=== PATIENT | male | born 1955 | race African-American/Black ===

== ENCOUNTER 2022-07-01 05:55 | Inpatient (IN) | payer MEDICARE, OTHER ==
[2022-07-01] MEDS ORDERED: Metoprolol Tartrate 5 MG/5 ML VIAL ONE ×2 (06:43→12:47)
[2022-07-01] MEDS ORDERED: Albuterol 2.5 MG/0.5 ML NEB ONE (06:43)
[2022-07-01] MEDS ORDERED: Ipratropium Bromide 2.5 ml Neb ONE (06:43)
[2022-07-01] MEDS ORDERED: Magnesium 2 GM/50 ML BAG (IN WATER) ONE ×2 (06:43→06:45)
[2022-07-01 06:48] LABS: #Basophils 0.1 thou/uL (0.0-0.2); #Eosinphils 0.3 thou/uL (0.0-0.7); #Lymphocytes 1.2 thou/uL (1.20-3.40); #Monocytes 0.6 thou/uL (0.11-0.59); #Neutrophils 5.8 thou/uL (1.40-6.50); %Basophils 0.6 % (0.0-1.0); %Eosinophils 4.1 % (0.0-10.0); %Lymphocytes 15.3 % (21.0-51.0); %Monocytes 7.2 % (0.0-10.0); %Neutrophils 72.7 % (42.0-75.0); Mean Corpuscular HGB CONC 32.1 g/dL (32.0-36.0); Mean Corpuscular Hemoglobin 27.1 pg (27.0-31.0); Mean Corpuscular Volume 84.4 fl (78.0-98.0); Mean Platelet Volume 8.9 fL (7.4-10.4); Platelet Count 477 10x3/uL (130-400); RBC Distribution Width 18.5 % (11.5-14.5); Red Blood Cell (RBC) Count 4.78 mill/uL (4.70-6.10); White Blood Cell (WBC) Count 7.9 10x3/uL (4.8-10.8)
[2022-07-01 06:55] LABS: INR-International Normal Ratio 1.3; PTT 37.8 sec (22.9-36.1); Prothrombin Time 16.9 sec (12.0-14.7)
[2022-07-01] MEDS ORDERED: Furosemide 40 MG/4 ML VIAL ONE ×2 (07:08→10:44)
[2022-07-01] MEDS ORDERED: methylPREDNISolone Sod Succ/PF 125 MG/2 ML VIAL ONE (07:08)
[2022-07-01 07:31] LABS: CKMB 2.4 ng/mL (0-6.6)
[2022-07-01 07:34] LABS: Albumin 3.6 g/dL (3.4-4.8); Anion Gap 14 mmol/L (10-20); BUN (Urea Nitrogen) 19 mg/dL (8.4-25.7); Bilirubin, Total 1.1 mg/dL (0.2-1.2); Calc. Creatinine Clearance 0 mL/min (70-130); Calcium 9.5 mg/dL (7.8-10.44); Carbon Dioxide 21 mmol/L (23-31); Chloride 110 mmol/L (98-107); Estimated GFR 47; Globulin 4.1 g/dL (2.4-3.5); Glucose 120 mg/dL (80-115); Potassium 3.8 mmol/L (3.5-5.1); Protein, Total 7.7 g/dL (5.8-8.1); Sodium 141 mmol/L (136-145)
[2022-07-01 07:35] LABS: ALT (SGPT) 31 U/L (8-55); AST (SGOT) 24 U/L (5-34); Alkaline Phosphatase 83 U/L (40-110); Lipase 9 U/L (8-78)
[2022-07-01 07:48] LABS: SARS-CoV-2 NAA Rapid Test Not Detected (NotDetected)
[2022-07-01] MEDS ORDERED: Nitroglycerin 2% Ointment 1 INCH/1 GM Packet ONE (08:20)
[2022-07-01] MEDS ORDERED: Nitroglycerin 0.4 MG TAB 1 EACH ONE (08:20)
[2022-07-01] MEDS ORDERED: Senokot S 8.6-50 MG TAB PO PRN (08:58)
[2022-07-01] MEDS ORDERED: Calcium Carbonate 500 MG ChewTAB PO PRN (08:58)
[2022-07-01] MEDS ORDERED: HYDROcodone/Acetaminophen 5/325 mg Tablet PO PRN (08:58)
[2022-07-01] MEDS ORDERED: Acetaminophen 325 MG TAB PO PRN (08:58)
[2022-07-01] MEDS ORDERED: Nitroglycerin 50 MG/250 ML BOT 250 ML IVPB SCH ×2 (09:00→09:45)
[2022-07-01] MEDS ORDERED: Ipratropium/Albuterol 3 ML NEB NEB PRN (09:06)
[2022-07-01] MEDS ORDERED: Iopamidol-370 76% 500 ML 1 ML ONE (09:16)
[2022-07-01] MEDS ORDERED: Nitroglycerin 50 MG/250 ML BOT 250 ML ONE (09:25)
[2022-07-01] MEDS ORDERED: Famotidine 20 MG TAB PO SCH (09:45)
[2022-07-01] MEDS: Furosemide 40 MG/4 ML VIAL SLOW IVP SCH (09:45)
[2022-07-01 10:08] LABS: Troponin I 0.042 ng/mL (< 0.028)
[2022-07-01] MEDS ORDERED: Famotidine/PF 20 mg/2ml Vial ONE (10:44)
[2022-07-01] MEDS ORDERED: hydrALAZINE 20 MG/ML VIAL SLOW IVP SCH (11:30)
[2022-07-01] MEDS ORDERED: Carvedilol 6.25 MG TAB PO SCH (11:30)
[2022-07-01 12:20] LABS: Troponin I 0.043 ng/mL (< 0.028)
[2022-07-01] MEDS ORDERED: hydrALAZINE 20 MG/ML VIAL ONE (12:27)
[2022-07-01] MEDS ORDERED: Metoprolol Tartrate 5 MG/5 ML VIAL IVP SCH (12:45)
[2022-07-01] MEDS ORDERED: Furosemide 20 MG TAB PO SCH (14:00)
[2022-07-01] MEDS ORDERED: Furosemide 40 MG TAB ONE (14:22)
[2022-07-01 20:58] LABS: Anion Gap 19 mmol/L (10-20); BUN (Urea Nitrogen) 19 mg/dL (8.4-25.7); Calc. Creatinine Clearance 0 mL/min (70-130); Calcium 9.3 mg/dL (7.8-10.44); Carbon Dioxide 20 mmol/L (23-31); Chloride 108 mmol/L (98-107); Estimated GFR 56; Glucose 106 mg/dL (80-115); Potassium 4.5 mmol/L (3.5-5.1); Sodium 142 mmol/L (136-145)
[2022-07-01 21:59] LABS: Bacteria/HPF None Seen HPF (None Seen); Bilirubin Negative (Negative); Blood, Urine Negative (Negative); Clarity Clear (Clear); Glucose, Urine (Dipstick) Normal (Negative); Ketone, Urine Trace mg/dL (Negative); Leukocyte 250 Leu/uL (Negative); Nitrite Negative (Negative); Protein, Urine (Dipstick) Negative (Neg-Trace); RBC/HPF None Seen HPF (0-3); Specific Gravity, Urine 1.015 (1.002-1.036); Squamous Epithelial 0-3 HPF (0-3); Urobilinogen Normal mg/dL (Less than 2); WBC/HPF 0-3 HPF (0-3)
[2022-07-01] MEDS: Carvedilol 6.25 MG TAB PO SCH (23:06)
[2022-07-01 23:10] VITALS: BMI 26.5
[2022-07-02] MEDS ORDERED: Metoprolol Tartrate 5 MG/5 ML VIAL IVP SCH (00:30)
[2022-07-02] MEDS ORDERED: Diltiazem 125 MG in Sodium Chloride 0.9% 100 ML IVPB SCH (01:30)
[2022-07-02] MEDS ORDERED: Diltiazem HCl 125 MG, Admixture Fee 1 EACH in Sodium Chloride 0.9% 100 ML IVPB SCH (01:30)
[2022-07-02 04:29] LABS: #Eosinphils 0.1 thou/uL (0.0-0.7); #Lymphocytes 1.2 thou/uL (1.20-3.40); #Neutrophils 5.6 thou/uL (1.40-6.50); %Basophils 0.5 % (0.0-1.0); %Eosinophils 0.7 % (0.0-10.0); %Lymphocytes 15.8 % (21.0-51.0); %Monocytes 12.3 % (0.0-10.0); %Neutrophils 70.6 % (42.0-75.0); Hemoglobin 13.8 g/dL (14.0-18.0); Mean Corpuscular HGB CONC 30.8 g/dL (32.0-36.0); Mean Corpuscular Hemoglobin 26.2 pg (27.0-31.0); Mean Corpuscular Volume 84.9 fl (78.0-98.0); Mean Platelet Volume 9.4 fL (7.4-10.4); Platelet Count 413 10x3/uL (130-400); RBC Distribution Width 18.7 % (11.5-14.5); Red Blood Cell (RBC) Count 5.27 mill/uL (4.70-6.10); White Blood Cell (WBC) Count 7.9 10x3/uL (4.8-10.8)
[2022-07-02 04:40] LABS: Anion Gap 18 mmol/L (10-20); BUN (Urea Nitrogen) 24 mg/dL (8.4-25.7); Calc. Creatinine Clearance 54 mL/min (70-130); Calcium 9.3 mg/dL (7.8-10.44); Carbon Dioxide 15 mmol/L (23-31); Cardiac Risk 3.4 (Less than 4.5); Chloride 112 mmol/L (98-107); Cholesterol 158 mg/dl (< 200 Desired); Estimated GFR 52; Glucose 123 mg/dL (80-115); HDL Cholesterol 46 mg/dL (>60 Neg Risk); LDL Cholesterol, Calculated 91 mg/dL; Sodium 141 mmol/L (136-145); Triglycerides 104 mg/dL (Less than 150)
[2022-07-02 04:44] LABS: Hemoglobin A1c 5.4 % (4.0-6.0)
[2022-07-02] MEDS: Furosemide 40 MG/4 ML VIAL SLOW IVP SCH ×3 (05:29→14:55)
[2022-07-02] MEDS ORDERED: Famotidine 20 MG TAB PO SCH (09:00)
[2022-07-02] MEDS ORDERED: FLU VACC QS2022-23(65YR UP)/PF 240 MCG/0.7 ML SYRINGE IM ONE (09:00)
[2022-07-02] MEDS ORDERED: Iopamidol-370 76% 500 ML 1 ML ONE (09:46)
[2022-07-02 10:04] LABS: Actual Bicarbonate (HCO3a) 27.8 mEq/L (22-28); Base Excess (BEa) 4.4 mEq/L (-2.0 to +3.0); CO2 Tension 37.3 mmHg (35.0-45.0); Calcium, Ionized (arterial) 1.18 mmol/L (1.12-1.30); O2 Tension (PaO2), arterial 68.7 mmHg (> 80.0); Potassium - ABG Lab 3.45 mmol/L (3.70-5.30); pH, Arterial 7.49 (7.35-7.45)
[2022-07-02 10:08] LABS: Puncture Site Right Radial
[2022-07-02] MEDS ORDERED: Aspirin 81 mg Enteric Coated Tablet PO SCH (12:15)
[2022-07-02] MEDS: Carvedilol 6.25 MG TAB PO SCH ×2 (13:12→18:26)
[2022-07-02] MEDS ORDERED: Carvedilol 6.25 MG TAB PO SCH (17:30)
[2022-07-02] MEDS: Diltiazem 125 MG in Sodium Chloride 0.9% 100 ML IVPB SCH (21:33)
[2022-07-02] MEDS: Atorvastatin Calcium 40 MG TAB PO SCH (21:34)
[2022-07-02] MEDS: Amiodarone 200 MG TAB PO SCH (21:34)
[2022-07-03 05:06] LABS: #Basophils 0.1 thou/uL (0.0-0.2); #Eosinphils 0.3 thou/uL (0.0-0.7); #Lymphocytes 1.2 thou/uL (1.20-3.40); #Monocytes 0.6 thou/uL (0.11-0.59); #Neutrophils 5.9 thou/uL (1.40-6.50); %Basophils 0.9 % (0.0-1.0); %Eosinophils 3.6 % (0.0-10.0); %Lymphocytes 15.1 % (21.0-51.0); %Monocytes 7.6 % (0.0-10.0); %Neutrophils 72.8 % (42.0-75.0); Hemoglobin 13.3 g/dL (14.0-18.0); Mean Corpuscular HGB CONC 32.5 g/dL (32.0-36.0); Mean Corpuscular Hemoglobin 27.5 pg (27.0-31.0); Mean Corpuscular Volume 84.6 fl (78.0-98.0); Mean Platelet Volume 8.7 fL (7.4-10.4); Platelet Count 504 10x3/uL (130-400); RBC Distribution Width 18.3 % (11.5-14.5); Red Blood Cell (RBC) Count 4.83 mill/uL (4.70-6.10)
[2022-07-03 05:35] LABS: ALT (SGPT) 33 U/L (8-55); AST (SGOT) 20 U/L (5-34); Albumin 3.1 g/dL (3.4-4.8); Alkaline Phosphatase 68 U/L (40-110); Anion Gap 15 mmol/L (10-20); BUN (Urea Nitrogen) 21 mg/dL (8.4-25.7); Bilirubin, Total 0.9 mg/dL (0.2-1.2); Calc. Creatinine Clearance 74 mL/min (70-130); Calcium 9.4 mg/dL (7.8-10.44); Carbon Dioxide 25 mmol/L (23-31); Cardiac Risk 3.8 (Less than 4.5); Chloride 106 mmol/L (98-107); Cholesterol 152 mg/dl (< 200 Desired); Estimated GFR 76; Glucose 100 mg/dL (80-115); HDL Cholesterol 40 mg/dL (>60 Neg Risk); LDL Cholesterol, Calculated 93 mg/dL; Magnesium 1.7 mg/dL (1.6-2.6); Potassium 3.5 mmol/L (3.5-5.1); Protein, Total 7.1 g/dL (5.8-8.1); Sodium 142 mmol/L (136-145); Triglycerides 96 mg/dL (Less than 150)
[2022-07-03] MEDS: Furosemide 40 MG/4 ML VIAL SLOW IVP SCH ×2 (05:51→15:07)
[2022-07-03] MEDS ORDERED: Carvedilol 6.25 MG TAB PO SCH (08:00)
[2022-07-03] MEDS: Diltiazem 125 MG in Sodium Chloride 0.9% 100 ML IVPB SCH ×2 (08:17→17:43)
[2022-07-03] MEDS ORDERED: Magnesium 2 GM/50 ML(in water) 2 GM in Premix Bag 1 BAG IVPB SCH (09:00)
[2022-07-03] MEDS ORDERED: Potassium Chloride 20 MEQ TAB PO SCH (09:00)
[2022-07-03] MEDS: Famotidine 20 MG TAB PO SCH ×2 (09:08→20:51)
[2022-07-03] MEDS: Aspirin 81 mg Enteric Coated Tablet PO SCH (09:09)
[2022-07-03] MEDS: Amiodarone 200 MG TAB PO SCH ×2 (09:09→20:51)
[2022-07-03] MEDS: Carvedilol 6.25 MG TAB PO SCH ×2 (15:07→21:38)
[2022-07-03] MEDS: Potassium Chloride 10 MEQ TAB PO SCH (17:43)
[2022-07-03] MEDS: Atorvastatin Calcium 40 MG TAB PO SCH (20:51)
[2022-07-04] MEDS: Diltiazem 125 MG in Sodium Chloride 0.9% 100 ML IVPB SCH (01:52)
[2022-07-04 05:49] LABS: #Basophils 0.1 thou/uL (0.0-0.2); #Eosinphils 0.4 thou/uL (0.0-0.7); #Lymphocytes 1.2 thou/uL (1.20-3.40); #Monocytes 0.6 thou/uL (0.11-0.59); #Neutrophils 6.4 thou/uL (1.40-6.50); %Eosinophils 4.2 % (0.0-10.0); %Lymphocytes 14.2 % (21.0-51.0); %Monocytes 7.1 % (0.0-10.0); %Neutrophils 73.5 % (42.0-75.0); Hemoglobin 13.2 g/dL (14.0-18.0); Mean Corpuscular HGB CONC 32.2 g/dL (32.0-36.0); Mean Corpuscular Volume 83.7 fl (78.0-98.0); Mean Platelet Volume 8.4 fL (7.4-10.4); Platelet Count 445 10x3/uL (130-400); RBC Distribution Width 18.3 % (11.5-14.5); Red Blood Cell (RBC) Count 4.89 mill/uL (4.70-6.10); White Blood Cell (WBC) Count 8.7 10x3/uL (4.8-10.8)
[2022-07-04] MEDS: Furosemide 40 MG/4 ML VIAL SLOW IVP SCH ×2 (06:05→14:49)
[2022-07-04 06:11] LABS: Anion Gap 12 mmol/L (10-20); BUN (Urea Nitrogen) 20 mg/dL (8.4-25.7); Calc. Creatinine Clearance 63 mL/min (70-130); Calcium 9.3 mg/dL (7.8-10.44); Carbon Dioxide 27 mmol/L (23-31); Chloride 105 mmol/L (98-107); Estimated GFR 63; Glucose 107 mg/dL (80-115); Magnesium 1.9 mg/dL (1.6-2.6); Potassium 3.7 mmol/L (3.5-5.1); Sodium 140 mmol/L (136-145)
[2022-07-04] MEDS: Aspirin 81 mg Enteric Coated Tablet PO SCH (09:21)
[2022-07-04] MEDS: Famotidine 20 MG TAB PO SCH ×2 (09:21→21:53)
[2022-07-04] MEDS ORDERED: Regadenoson 0.4 MG/5 ML SYRINGE ONE (09:41)
[2022-07-04] MEDS ORDERED: Magnesium 2 GM/50 ML(in water) 2 GM in Premix Bag 1 BAG IVPB SCH (10:30)
[2022-07-04] MEDS: Carvedilol 6.25 MG TAB PO SCH ×3 (13:14→21:52)
[2022-07-04] MEDS: Potassium Chloride 10 MEQ TAB PO SCH ×2 (13:21→17:32)
[2022-07-04] MEDS: Amiodarone 200 MG TAB PO SCH ×2 (13:21→21:53)
[2022-07-04] MEDS: Atorvastatin Calcium 40 MG TAB PO SCH (21:53)
[2022-07-05 05:58] LABS: #Eosinphils 0.4 thou/uL (0.0-0.7); #Lymphocytes 1.2 thou/uL (1.20-3.40); #Monocytes 0.6 thou/uL (0.11-0.59); #Neutrophils 6.2 thou/uL (1.40-6.50); %Basophils 0.6 % (0.0-1.0); %Eosinophils 5.3 % (0.0-10.0); %Lymphocytes 13.8 % (21.0-51.0); %Monocytes 6.7 % (0.0-10.0); %Neutrophils 73.6 % (42.0-75.0); Hemoglobin 14.9 g/dL (14.0-18.0); Mean Corpuscular HGB CONC 32.1 g/dL (32.0-36.0); Mean Corpuscular Hemoglobin 27.1 pg (27.0-31.0); Mean Corpuscular Volume 84.2 fl (78.0-98.0); Mean Platelet Volume 8.7 fL (7.4-10.4); Platelet Count 501 10x3/uL (130-400); RBC Distribution Width 18.1 % (11.5-14.5); White Blood Cell (WBC) Count 8.4 10x3/uL (4.8-10.8)
[2022-07-05] MEDS: Furosemide 40 MG/4 ML VIAL SLOW IVP SCH (06:14)
[2022-07-05 06:17] LABS: Anion Gap 11 mmol/L (10-20); BUN (Urea Nitrogen) 19 mg/dL (8.4-25.7); Calc. Creatinine Clearance 71 mL/min (70-130); Calcium 9.3 mg/dL (7.8-10.44); Carbon Dioxide 27 mmol/L (23-31); Chloride 104 mmol/L (98-107); Estimated GFR 72; Glucose 97 mg/dL (80-115); Magnesium 2.2 mg/dL (1.6-2.6); Potassium 3.5 mmol/L (3.5-5.1); Sodium 138 mmol/L (136-145)
[2022-07-05] MEDS: Aspirin 81 mg Enteric Coated Tablet PO SCH (10:37)
[2022-07-05] MEDS: Apixaban 5 MG TAB PO SCH ×2 (10:38→20:18)
[2022-07-05] MEDS: Carvedilol 6.25 MG TAB PO SCH ×3 (10:40→20:19)
[2022-07-05] MEDS: Potassium Chloride 10 MEQ TAB PO SCH ×2 (10:40→18:06)
[2022-07-05] MEDS: Famotidine 20 MG TAB PO SCH ×2 (10:40→20:18)
[2022-07-05] MEDS: Amiodarone 200 MG TAB PO SCH ×2 (10:40→20:18)
[2022-07-05] MEDS: Furosemide 40 MG TAB PO SCH ×2 (10:41→15:47)
[2022-07-05] MEDS ORDERED: Amoxicillin/Potassium Clav 875 MG TAB PO SCH (17:00)
[2022-07-05] MEDS: Atorvastatin Calcium 40 MG TAB PO SCH (20:18)
[2022-07-06] MEDS: Potassium Chloride 10 MEQ TAB PO SCH ×2 (08:28→17:21)
[2022-07-06] MEDS: Furosemide 40 MG TAB PO SCH ×2 (08:29→14:15)
[2022-07-06] MEDS: Amoxicillin/Potassium Clav 875 MG TAB PO SCH ×2 (08:29→21:21)
[2022-07-06] MEDS: Aspirin 81 mg Enteric Coated Tablet PO SCH (08:29)
[2022-07-06] MEDS: Carvedilol 6.25 MG TAB PO SCH ×3 (08:30→21:20)
[2022-07-06] MEDS: Apixaban 5 MG TAB PO SCH ×2 (08:31→21:20)
[2022-07-06] MEDS: Famotidine 20 MG TAB PO SCH ×2 (08:31→21:20)
[2022-07-06] MEDS: Amiodarone 200 MG TAB PO SCH ×2 (08:33→21:20)
[2022-07-06] MEDS: Atorvastatin Calcium 40 MG TAB PO SCH (21:20)
[2022-07-07 09:08] LABS: Anion Gap 14 mmol/L (10-20); BUN (Urea Nitrogen) 19 mg/dL (8.4-25.7); Calc. Creatinine Clearance 66 mL/min (70-130); Calcium 9.7 mg/dL (7.8-10.44); Carbon Dioxide 24 mmol/L (23-31); Chloride 103 mmol/L (98-107); Estimated GFR 68; Glucose 89 mg/dL (80-115); Sodium 137 mmol/L (136-145)
[2022-07-07] MEDS: Potassium Chloride 10 MEQ TAB PO SCH ×2 (09:38→18:22)
[2022-07-07] MEDS: Amiodarone 200 MG TAB PO SCH ×2 (09:39→21:56)
[2022-07-07] MEDS: Amoxicillin/Potassium Clav 875 MG TAB PO SCH ×2 (09:39→21:56)
[2022-07-07] MEDS: Carvedilol 6.25 MG TAB PO SCH ×3 (09:39→21:57)
[2022-07-07] MEDS: Furosemide 40 MG TAB PO SCH ×2 (09:40→14:57)
[2022-07-07] MEDS: Famotidine 20 MG TAB PO SCH ×2 (09:40→21:56)
[2022-07-07] MEDS: Aspirin 81 mg Enteric Coated Tablet PO SCH (09:40)
[2022-07-07] MEDS: Apixaban 5 MG TAB PO SCH ×2 (09:44→21:56)
[2022-07-07 10:50] LABS: #Eosinphils 0.5 thou/uL (0.0-0.7); #Lymphocytes 1.2 thou/uL (1.20-3.40); #Monocytes 0.5 thou/uL (0.11-0.59); #Neutrophils 5.4 thou/uL (1.40-6.50); %Basophils 0.5 % (0.0-1.0); %Eosinophils 6.9 % (0.0-10.0); %Monocytes 6.1 % (0.0-10.0); %Neutrophils 70.6 % (42.0-75.0); Hemoglobin 15.1 g/dL (14.0-18.0); Mean Corpuscular HGB CONC 31.2 g/dL (32.0-36.0); Mean Corpuscular Hemoglobin 26.8 pg (27.0-31.0); Mean Corpuscular Volume 85.7 fl (78.0-98.0); Mean Platelet Volume 8.2 fL (7.4-10.4); Platelet Count 568 10x3/uL (130-400); RBC Distribution Width 18.2 % (11.5-14.5); Red Blood Cell (RBC) Count 5.66 mill/uL (4.70-6.10); White Blood Cell (WBC) Count 7.7 10x3/uL (4.8-10.8)
[2022-07-07 11:11] LABS: ALT (SGPT) 15 U/L (8-55); AST (SGOT) 15 U/L (5-34); Albumin 3.5 g/dL (3.4-4.8); Alkaline Phosphatase 69 U/L (40-110); Anion Gap 12 mmol/L (10-20); BUN (Urea Nitrogen) 17 mg/dL (8.4-25.7); Bilirubin, Total 0.7 mg/dL (0.2-1.2); CRP (Inflammatory) 3.95 mg/dL (= or < 0.5); Calc. Creatinine Clearance 67 mL/min (70-130); Calcium 9.3 mg/dL (7.8-10.44); Carbon Dioxide 24 mmol/L (23-31); Chloride 103 mmol/L (98-107); Estimated GFR 69; Globulin 4.4 g/dL (2.4-3.5); Glucose 100 mg/dL (80-115); Protein, Total 7.9 g/dL (5.8-8.1); Sodium 135 mmol/L (136-145)
[2022-07-07] MEDS: Atorvastatin Calcium 40 MG TAB PO SCH (21:56)
[2022-07-08 06:14] LABS: #Basophils 0.1 thou/uL (0.0-0.2); #Eosinphils 0.7 thou/uL (0.0-0.7); #Lymphocytes 1.5 thou/uL (1.20-3.40); #Monocytes 0.8 thou/uL (0.11-0.59); #Neutrophils 4.8 thou/uL (1.40-6.50); %Basophils 1.2 % (0.0-1.0); %Lymphocytes 18.8 % (21.0-51.0); %Monocytes 9.9 % (0.0-10.0); %Neutrophils 61.1 % (42.0-75.0); Hemoglobin 13.8 g/dL (14.0-18.0); Mean Corpuscular HGB CONC 31.2 g/dL (32.0-36.0); Mean Corpuscular Hemoglobin 26.5 pg (27.0-31.0); Mean Corpuscular Volume 84.9 fl (78.0-98.0); Mean Platelet Volume 8.2 fL (7.4-10.4); Platelet Count 569 10x3/uL (130-400); RBC Distribution Width 17.6 % (11.5-14.5); White Blood Cell (WBC) Count 7.8 10x3/uL (4.8-10.8)
[2022-07-08 06:42] LABS: Anion Gap 12 mmol/L (10-20); BUN (Urea Nitrogen) 21 mg/dL (8.4-25.7); Calc. Creatinine Clearance 69 mL/min (70-130); Calcium 9.4 mg/dL (7.8-10.44); Carbon Dioxide 25 mmol/L (23-31); Chloride 106 mmol/L (98-107); Estimated GFR 72; Glucose 100 mg/dL (80-115); Magnesium 1.9 mg/dL (1.6-2.6); Sodium 139 mmol/L (136-145)
[2022-07-08] MEDS: Carvedilol 6.25 MG TAB PO SCH ×3 (08:50→20:04)
[2022-07-08] MEDS: Famotidine 20 MG TAB PO SCH ×2 (08:50→20:04)
[2022-07-08] MEDS: Amoxicillin/Potassium Clav 875 MG TAB PO SCH ×2 (08:50→20:04)
[2022-07-08] MEDS: Potassium Chloride 10 MEQ TAB PO SCH ×2 (08:50→17:09)
[2022-07-08] MEDS: Apixaban 5 MG TAB PO SCH ×2 (08:50→20:04)
[2022-07-08] MEDS: Furosemide 40 MG TAB PO SCH ×2 (08:51→15:04)
[2022-07-08] MEDS: Amiodarone 200 MG TAB PO SCH ×2 (08:51→20:04)
[2022-07-08] MEDS: Atorvastatin Calcium 40 MG TAB PO SCH (20:04)
[2022-07-09 06:28] LABS: #Basophils 0.1 thou/uL (0.0-0.2); #Eosinphils 0.9 thou/uL (0.0-0.7); #Lymphocytes 1.3 thou/uL (1.20-3.40); #Monocytes 0.6 thou/uL (0.11-0.59); #Neutrophils 3.8 thou/uL (1.40-6.50); %Basophils 0.9 % (0.0-1.0); %Eosinophils 13.1 % (0.0-10.0); %Lymphocytes 19.7 % (21.0-51.0); %Monocytes 8.9 % (0.0-10.0); %Neutrophils 57.4 % (42.0-75.0); Hemoglobin 13.9 g/dL (14.0-18.0); Mean Corpuscular HGB CONC 30.5 g/dL (32.0-36.0); Mean Corpuscular Hemoglobin 25.9 pg (27.0-31.0); Mean Corpuscular Volume 84.8 fl (78.0-98.0); Mean Platelet Volume 8.3 fL (7.4-10.4); Platelet Count 565 10x3/uL (130-400); RBC Distribution Width 17.8 % (11.5-14.5); Red Blood Cell (RBC) Count 5.35 mill/uL (4.70-6.10); White Blood Cell (WBC) Count 6.6 10x3/uL (4.8-10.8)
[2022-07-09 06:47] LABS: Anion Gap 11 mmol/L (10-20); BUN (Urea Nitrogen) 20 mg/dL (8.4-25.7); Calc. Creatinine Clearance 62 mL/min (70-130); Calcium 9.8 mg/dL (7.8-10.44); Carbon Dioxide 27 mmol/L (23-31); Chloride 104 mmol/L (98-107); Estimated GFR 65; Glucose 101 mg/dL (80-115); Magnesium 1.9 mg/dL (1.6-2.6); Sodium 138 mmol/L (136-145)
[2022-07-09] MEDS: Carvedilol 6.25 MG TAB PO SCH ×3 (08:51→20:47)
[2022-07-09] MEDS: Potassium Chloride 10 MEQ TAB PO SCH ×2 (08:51→16:52)
[2022-07-09] MEDS: Amiodarone 200 MG TAB PO SCH ×2 (08:51→20:47)
[2022-07-09] MEDS: Apixaban 5 MG TAB PO SCH ×2 (08:51→20:48)
[2022-07-09] MEDS: Furosemide 40 MG TAB PO SCH ×2 (08:52→14:41)
[2022-07-09] MEDS: Famotidine 20 MG TAB PO SCH ×2 (08:52→20:48)
[2022-07-09] MEDS: Amoxicillin/Potassium Clav 875 MG TAB PO SCH ×2 (08:53→20:47)
[2022-07-09] MEDS: Atorvastatin Calcium 40 MG TAB PO SCH (20:48)
[2022-07-10 05:22] LABS: #Eosinphils 0.8 thou/uL (0.0-0.7); #Lymphocytes 1.2 thou/uL (1.20-3.40); #Monocytes 0.6 thou/uL (0.11-0.59); #Neutrophils 3.7 thou/uL (1.40-6.50); %Basophils 0.6 % (0.0-1.0); %Eosinophils 13.3 % (0.0-10.0); %Lymphocytes 18.6 % (21.0-51.0); %Monocytes 9.1 % (0.0-10.0); %Neutrophils 58.5 % (42.0-75.0); Hemoglobin 15.3 g/dL (14.0-18.0); Mean Corpuscular HGB CONC 31.8 g/dL (32.0-36.0); Mean Corpuscular Hemoglobin 26.7 pg (27.0-31.0); Mean Corpuscular Volume 83.8 fl (78.0-98.0); Mean Platelet Volume 8.1 fL (7.4-10.4); Platelet Count 573 10x3/uL (130-400); RBC Distribution Width 17.8 % (11.5-14.5); Red Blood Cell (RBC) Count 5.75 mill/uL (4.70-6.10); White Blood Cell (WBC) Count 6.3 10x3/uL (4.8-10.8)
[2022-07-10 05:47] LABS: Anion Gap 12 mmol/L (10-20); BUN (Urea Nitrogen) 21 mg/dL (8.4-25.7); Calc. Creatinine Clearance 59 mL/min (70-130); Calcium 9.8 mg/dL (7.8-10.44); Carbon Dioxide 24 mmol/L (23-31); Chloride 104 mmol/L (98-107); Estimated GFR 62; Glucose 101 mg/dL (80-115); Potassium 4.3 mmol/L (3.5-5.1); Sodium 136 mmol/L (136-145)
[2022-07-10] MEDS: Amiodarone 200 MG TAB PO SCH ×2 (08:48→21:03)
[2022-07-10] MEDS: Apixaban 5 MG TAB PO SCH ×2 (08:51→21:03)
[2022-07-10] MEDS: Carvedilol 6.25 MG TAB PO SCH ×3 (08:51→21:03)
[2022-07-10] MEDS: Furosemide 40 MG TAB PO SCH ×2 (08:52→14:20)
[2022-07-10] MEDS: Potassium Chloride 10 MEQ TAB PO SCH ×2 (08:52→17:33)
[2022-07-10] MEDS: Famotidine 20 MG TAB PO SCH ×2 (08:52→21:03)
[2022-07-10] MEDS: Amoxicillin/Potassium Clav 875 MG TAB PO SCH (08:53)
[2022-07-10] MEDS: Doxycycline 100 MG CAP PO SCH ×2 (09:37→21:03)
[2022-07-10] MEDS ORDERED: Vancomycin 1 GM in Premix Bag 1 BAG IVPB SCH (16:06)
[2022-07-10] MEDS ORDERED: Vancomycin 1.5 GRAM/300 ML BAG 1.5 GM in Premix Bag 1 BAG IVPB SCH (17:00)
[2022-07-10] MEDS: Atorvastatin Calcium 40 MG TAB PO SCH (21:03)
[2022-07-11] MEDS: Apixaban 5 MG TAB PO SCH ×2 (08:57→21:00)
[2022-07-11] MEDS: Amiodarone 200 MG TAB PO SCH ×2 (08:57→20:59)
[2022-07-11] MEDS: Famotidine 20 MG TAB PO SCH ×2 (08:57→21:00)
[2022-07-11] MEDS: Doxycycline 100 MG CAP PO SCH (08:58)
[2022-07-11] MEDS: Potassium Chloride 10 MEQ TAB PO SCH ×2 (08:58→15:05)
[2022-07-11] MEDS: Carvedilol 6.25 MG TAB PO SCH ×3 (08:58→20:59)
[2022-07-11] MEDS: Furosemide 40 MG TAB PO SCH ×2 (08:58→15:06)
[2022-07-11] MEDS ORDERED: HYDROcodone/Acetaminophen 5/325 mg Tablet PO PRN (10:01)
[2022-07-11] MEDS ORDERED: VANCOMYCIN 1.25 GM/250 ML BAG 1.25 GM in Premix Bag 1 BAG IVPB SCH (17:00)
[2022-07-11] MEDS: Atorvastatin Calcium 40 MG TAB PO SCH (21:00)
[2022-07-11 22:42] LABS: Magnesium 1.9 mg/dL (1.6-2.6)
[2022-07-11 22:43] LABS: Troponin I Less than 0.010 ng/mL (< 0.028)
[2022-07-11] MEDS ORDERED: Magnesium 2 GM/50 ML(in water) 2 GM in Premix Bag 1 BAG IVPB SCH (23:30)
[2022-07-12 05:44] LABS: #Basophils 0.1 thou/uL (0.0-0.2); #Eosinphils 0.6 thou/uL (0.0-0.7); #Monocytes 0.5 thou/uL (0.11-0.59); #Neutrophils 2.7 thou/uL (1.40-6.50); %Basophils 1.7 % (0.0-1.0); %Eosinophils 13.2 % (0.0-10.0); %Lymphocytes 20.1 % (21.0-51.0); %Monocytes 10.5 % (0.0-10.0); %Neutrophils 54.6 % (42.0-75.0); Hemoglobin 14.8 g/dL (14.0-18.0); Mean Corpuscular HGB CONC 32.6 g/dL (32.0-36.0); Mean Corpuscular Hemoglobin 27.2 pg (27.0-31.0); Mean Corpuscular Volume 83.2 fl (78.0-98.0); Mean Platelet Volume 7.9 fL (7.4-10.4); Platelet Count 557 10x3/uL (130-400); RBC Distribution Width 17.5 % (11.5-14.5); Red Blood Cell (RBC) Count 5.44 mill/uL (4.70-6.10); White Blood Cell (WBC) Count 4.9 10x3/uL (4.8-10.8)
[2022-07-12 06:09] LABS: Anion Gap 11 mmol/L (10-20); BUN (Urea Nitrogen) 23 mg/dL (8.4-25.7); Calc. Creatinine Clearance 59 mL/min (70-130); Calcium 9.6 mg/dL (7.8-10.44); Carbon Dioxide 24 mmol/L (23-31); Chloride 104 mmol/L (98-107); Estimated GFR 62; Glucose 99 mg/dL (80-115); Potassium 4.2 mmol/L (3.5-5.1); Sodium 135 mmol/L (136-145)
[2022-07-12] MEDS: Amiodarone 200 MG TAB PO SCH ×2 (09:05→20:56)
[2022-07-12] MEDS: Furosemide 40 MG TAB PO SCH ×2 (09:05→15:16)
[2022-07-12] MEDS: Famotidine 20 MG TAB PO SCH ×2 (09:06→20:55)
[2022-07-12] MEDS: Carvedilol 6.25 MG TAB PO SCH ×3 (09:06→20:55)
[2022-07-12] MEDS: Apixaban 5 MG TAB PO SCH ×2 (09:07→20:56)
[2022-07-12] MEDS: Potassium Chloride 10 MEQ TAB PO SCH ×2 (09:07→17:34)
[2022-07-12] MEDS ORDERED: Lidocaine 1% (PF) 30 ML VIAL ONE (14:05)
[2022-07-12 16:22] LABS: Vancomycin, Trough 9.8 ug/mL
[2022-07-12] MEDS: Vancomycin 1.5 GRAM/300 ML BAG 1.5 GM in Premix Bag 1 BAG IVPB SCH (17:35)
[2022-07-12] MEDS: Atorvastatin Calcium 40 MG TAB PO SCH (20:55)
[2022-07-13] MEDS: Apixaban 5 MG TAB PO SCH ×2 (09:11→19:56)
[2022-07-13] MEDS: Potassium Chloride 10 MEQ TAB PO SCH ×2 (09:11→16:40)
[2022-07-13] MEDS: Famotidine 20 MG TAB PO SCH ×2 (09:11→19:56)
[2022-07-13] MEDS: Carvedilol 6.25 MG TAB PO SCH ×3 (09:11→19:56)
[2022-07-13] MEDS: Amiodarone 200 MG TAB PO SCH ×2 (09:11→19:56)
[2022-07-13] MEDS: Furosemide 40 MG TAB PO SCH ×2 (09:11→14:22)
[2022-07-13 09:50] LABS: #Basophils 0.1 thou/uL (0.0-0.2); #Eosinphils 0.6 thou/uL (0.0-0.7); #Monocytes 0.4 thou/uL (0.11-0.59); #Neutrophils 2.7 thou/uL (1.40-6.50); %Basophils 1.6 % (0.0-1.0); %Eosinophils 12.7 % (0.0-10.0); %Lymphocytes 20.3 % (21.0-51.0); %Monocytes 8.1 % (0.0-10.0); %Neutrophils 57.3 % (42.0-75.0); Hemoglobin 15.5 g/dL (14.0-18.0); Mean Corpuscular HGB CONC 31.3 g/dL (32.0-36.0); Mean Corpuscular Hemoglobin 26.3 pg (27.0-31.0); Mean Corpuscular Volume 84.2 fl (78.0-98.0); Mean Platelet Volume 7.8 fL (7.4-10.4); Platelet Count 598 10x3/uL (130-400); RBC Distribution Width 17.5 % (11.5-14.5); Red Blood Cell (RBC) Count 5.91 mill/uL (4.70-6.10); White Blood Cell (WBC) Count 4.7 10x3/uL (4.8-10.8)
[2022-07-13 10:18] LABS: Anion Gap 13 mmol/L (10-20); BUN (Urea Nitrogen) 26 mg/dL (8.4-25.7); Calc. Creatinine Clearance 58 mL/min (70-130); Calcium 9.7 mg/dL (7.8-10.44); Carbon Dioxide 25 mmol/L (23-31); Chloride 104 mmol/L (98-107); Estimated GFR 63; Glucose 76 mg/dL (80-115); Potassium 4.4 mmol/L (3.5-5.1); Sodium 138 mmol/L (136-145)
[2022-07-13] MEDS: Vancomycin 1.5 GRAM/300 ML BAG 1.5 GM in Premix Bag 1 BAG IVPB SCH (16:39)
[2022-07-13] MEDS: Atorvastatin Calcium 40 MG TAB PO SCH (19:57)
[2022-07-14 05:02] LABS: #Basophils 0.1 thou/uL (0.0-0.2); #Eosinphils 0.7 thou/uL (0.0-0.7); #Lymphocytes 1.1 thou/uL (1.20-3.40); #Monocytes 0.6 thou/uL (0.11-0.59); #Neutrophils 2.5 thou/uL (1.40-6.50); %Basophils 1.2 % (0.0-1.0); %Eosinophils 14.3 % (0.0-10.0); %Lymphocytes 23.1 % (21.0-51.0); %Monocytes 11.3 % (0.0-10.0); %Neutrophils 49.9 % (42.0-75.0); Hemoglobin 14.8 g/dL (14.0-18.0); Mean Corpuscular HGB CONC 31.3 g/dL (32.0-36.0); Mean Corpuscular Hemoglobin 26.1 pg (27.0-31.0); Mean Corpuscular Volume 83.3 fl (78.0-98.0); Platelet Count 545 10x3/uL (130-400); RBC Distribution Width 17.7 % (11.5-14.5); Red Blood Cell (RBC) Count 5.69 mill/uL (4.70-6.10); White Blood Cell (WBC) Count 4.9 10x3/uL (4.8-10.8)
[2022-07-14 05:25] LABS: Anion Gap 11 mmol/L (10-20); BUN (Urea Nitrogen) 23 mg/dL (8.4-25.7); Calc. Creatinine Clearance 66 mL/min (70-130); Calcium 9.4 mg/dL (7.8-10.44); Carbon Dioxide 25 mmol/L (23-31); Chloride 105 mmol/L (98-107); Estimated GFR 73; Glucose 99 mg/dL (80-115); Potassium 3.8 mmol/L (3.5-5.1); Sodium 137 mmol/L (136-145)
[2022-07-14] MEDS: Amiodarone 200 MG TAB PO SCH ×2 (09:40→20:50)
[2022-07-14] MEDS: Furosemide 40 MG TAB PO SCH ×2 (09:40→14:16)
[2022-07-14] MEDS: Potassium Chloride 10 MEQ TAB PO SCH ×2 (09:40→17:09)
[2022-07-14] MEDS: Apixaban 5 MG TAB PO SCH ×2 (09:40→20:57)
[2022-07-14] MEDS: Famotidine 20 MG TAB PO SCH ×2 (09:40→20:51)
[2022-07-14] MEDS: Carvedilol 6.25 MG TAB PO SCH ×3 (09:40→20:51)
[2022-07-14 16:43] LABS: Vancomycin, Trough 12.5 ug/mL
[2022-07-14] MEDS: Vancomycin 1.5 GRAM/300 ML BAG 1.5 GM in Premix Bag 1 BAG IVPB SCH (17:09)
[2022-07-14] MEDS: Atorvastatin Calcium 40 MG TAB PO SCH (20:50)
[2022-07-15] MEDS ORDERED: Vancomycin HCl 750 MG in Sodium Chloride 0.9% 250 ML 250 ML IVPB SCH (05:00)
[2022-07-15 08:21] VITALS: BP 149/92; TEMP 98.5
[2022-07-15] MEDS: Apixaban 5 MG TAB PO SCH (08:55)
[2022-07-15] MEDS: Amiodarone 200 MG TAB PO SCH (08:55)
[2022-07-15] MEDS: Famotidine 20 MG TAB PO SCH (08:56)
[2022-07-15] MEDS: Carvedilol 6.25 MG TAB PO SCH (08:56)
[2022-07-15] MEDS: Furosemide 40 MG TAB PO SCH (08:56)
[2022-07-15] MEDS: Potassium Chloride 10 MEQ TAB PO SCH (08:57)
[2022-07-16] MEDS ORDERED: Amiodarone 200 MG TAB PO SCH (09:00)
[2022-07-30] MEDS ORDERED: Amiodarone 200 MG TAB PO SCH (09:00)
== END 2022-07-15 09:45 | disposition home or self-care (01) | DRG 291 ==
LOC: ERS 05:55 → ERHOLD 08:39 → 2NO 22:19 → NEURO 07-02 15:30
PROVIDERS: ADMIT Internal Medicine; ATTEND Internal Medicine
PROC: 0H9EXZZ Drainage of Left Lower Arm Skin, External Approach (ICD-10-PCS; principal; 2022-07-12)
PROC: 0J9H0ZZ Drainage of Left Lower Arm Subcutaneous Tissue and Fascia, Open Approach (ICD-10-PCS; 2022-07-12)
DX: I13.0 Hypertensive heart and chronic kidney disease with heart failure and stage 1 through stage 4 chronic kidney disease, or unspecified chronic kidney disease (principal); I50.23 Acute on chronic systolic (congestive) heart failure; J96.01 Acute respiratory failure with hypoxia; I63.532 Cerebral infarction due to unspecified occlusion or stenosis of left posterior cerebral artery; N17.9 Acute kidney failure, unspecified; I47.20 Ventricular tachycardia, unspecified; I48.92 Unspecified atrial flutter; G93.49 Other encephalopathy; T82.868A Thrombosis due to vascular prosthetic devices, implants and grafts, initial encounter; L02.414 Cutaneous abscess of left upper limb; R78.81 Bacteremia; F17.210 Nicotine dependence, cigarettes, uncomplicated; Z20.822 Contact with and (suspected) exposure to COVID-19; E78.5 Hyperlipidemia, unspecified; N18.9 Chronic kidney disease, unspecified; I65.22 Occlusion and stenosis of left carotid artery; I48.91 Unspecified atrial fibrillation; R29.702 NIHSS score 2; Y83.8 Other surgical procedures as the cause of abnormal reaction of the patient, or of later complication, without mention of misadventure at the time of the procedure; H53.461 Homonymous bilateral field defects, right side; G93.89 Other specified disorders of brain; B95.62 Methicillin resistant Staphylococcus aureus infection as the cause of diseases classified elsewhere; Z91.199 Patient's noncompliance with other medical treatment and regimen due to unspecified reason; Z98.890 Other specified postprocedural states; Z87.891 Personal history of nicotine dependence; Z79.899 Other long term (current) drug therapy
CPT/HCPCS: 36415; 36416; 70450; 70496; 70498; 70551; 71045; 71275; 76999; 78452; 80048; 80053; 80061; 80202; 81003; 81015; 82140; 82553; 82805; 83036; 83690; 83735; 83880; 84443; 84484; 85025; 85610; 85730; 86140; 86850; 86900; 86901; 87040; 87070; 87077; 87186; 87205; 87811; 93005; 93010; 93017; 93306; 94640; 95712; 95819; 95957; 96365; 96366; 96368; 96375; A9500; J0360; J1650; J1940; J2001; J2785; J2930; J3370; J3475; J3490; J7611; J7620; Q9967; S0028; U0002